=== PATIENT | male | born 1960 | race Caucasian/White ===

== ENCOUNTER 2016-07-25 20:35 | Emergency (ER) | payer MEDICARE ==
--- NOTE | ~2016-07-25 | CT4 ---
[facility] A Service of [facility] RADIOLOGY TEXT RESULTS PATIENT: ROSALINDA VERA JR LOCATION: [facility] : 62 UNIT #: [id number] AGE: [address]: Dayana Glass MD SEX: M ORDER DR: [id number] [address] [address] [id number] E MR#: [id number] Acc #: [id number] NAME: ROSALINDA VERA : 1960 SEX: M STUDY DATE/TIME: 07/26/2016 1:22 UNIT: [facility] ROOM: STUDY DESCRIPTION: CT Abd and Pelv Wo Cont Attending Physician: Dayana Glass M.D. Ordering Physician: Dayana Glass M.D. Primary Care Physician: Primary Care Physician No MEDICAL IMAGING REPORT This report is preliminary unless electronic signature is present EXAM CT abdomen and pelvis. INDICATION Urinary tract infection. Hallucinations. Dysuria. Generalized abdominal pain. TECHNIQUE CT of the abdomen and pelvis without contrast. Coronal and sagittal reconstructions were obtained. This CT exam was performed with one or more of the following radiation dose reduction techniques: automatic exposure control, adjustment of mA and/or kV according to patient size, and iterative reconstruction. COMPARISON None available. FINDINGS ABDOMEN: The solid abdominal organs are within normal limits. No urinary calculi. No hydronephrosis. There are a few small cysts in the right kidney. The gallbladder is surgically absent. The bowel is not dilated. The appendix is normal. There is a small umbilical hernia. PELVIS: No pelvic mass. There is a direct left inguinal hernia. No complicating features. The bladder is unremarkable. No enlarged pelvic or inguinal lymph nodes. No acute osseous abnormalities. IMPRESSION No acute findings in the abdomen or pelvis to account for the patient's [facility] A Service of [facility] RADIOLOGY TEXT RESULTS PATIENT: ROSALINDA VERA JR LOCATION: [facility] : 62 UNIT #: [id number] AGE: [address]: Dayana Glass MD SEX: M ORDER DR: symptoms. Dictated by... Frankie Winston M.D. THIS IS AN ELECTRONICALLY VERIFIED REPORT Frankie Winston M.D. at 07/26/2016 4:30 AM EDWIN/italia TD: 07/26/2016 02:29 JOB #: [id number] MEDICAL IMAGING REPORT Page 1 of 1 COPY
--- NOTE | ~2016-07-25 | EKG ---
PATIENT: ROSALINDA VERA UNIT #: [id number] Ventricular Rate: 114 BPM Atrial Rate: 114 BPM P-R Interval: 124 ms QRS Duration: 84 ms Q-T Interval: 336 ms QTC Calculation(Bezet): 463 ms P [place]: 48 degrees Calculated R [place]: 37 degrees Calculated T [place]: 57 degrees Diagnosis Line: Sinus tachycardia Diagnosis Line: Otherwise normal ECG Diagnosis Line: Diagnosis Line: Confirmed by SERA BUNDY MD ([id number]) on Diagnosis Line: 07/26/2016 1:36:21 PM INTERPRETING MD: NIHARIKA LINDSEY
--- NOTE | ~2016-07-25 | CT71 ---
[facility] A Service [facility] RADIOLOGY TEXT RESULTS PATIENT: ROSALINDA VERA JR LOCATION: [facility] : 62 UNIT #: [id number] AGE: [address]: Dayana Glass MD SEX: M ORDER DR: [id number] [address] [place], [place] [address] [id number] E MR#: [id number] Acc #: [id number] NAME: ROSALINDA VERA : 1960 SEX: M STUDY DATE/TIME: 07/26/2016 1:19 UNIT: [facility] ROOM: STUDY DESCRIPTION: CT Head Wo Contrast Attending Physician: Dayana Glass M.D. Ordering Physician: Dayana Glass M.D. Primary Care Physician: Primary Care Physician No MEDICAL IMAGING REPORT This report is preliminary unless electronic signature is present EXAM CT head INDICATION Urinary tract infection. Hallucinations. Dizziness and altered mental status. TECHNIQUE CT head without contrast. This CT exam was performed with one or more of the following radiation dose reduction techniques: automatic exposure control, adjustment of mA and/or kV according to patient size, and iterative reconstruction. COMPARISON CT head dated 12/08/2013. FINDINGS Axial noncontrast images were obtained from the skull base to the vertex. Ventricular size and configuration are normal. There is no evidence of acute infarct or hemorrhage. There are no extra-axial fluid collections. No mass lesion or mass effect is seen. There are no skull fractures. The patient has had prior left mastoidectomy. IMPRESSION Normal noncontrast head CT. Dictated by... Frankie Winston M.D. THIS IS AN ELECTRONICALLY VERIFIED REPORT [facility] A Service [facility] RADIOLOGY TEXT RESULTS PATIENT: ROSALINDA VERA JR LOCATION: [facility] : 62 UNIT #: [id number] AGE: [address]: Dayana Glass MD SEX: M ORDER DR: Frankie Winston M.D. at 07/26/2016 4:30 AM Martina TD: 07/26/2016 02:27 JOB #: [id number] MEDICAL IMAGING REPORT Page 1 of 1 COPY
[2016-07-26 01:39] LABS: URINE SOURCE CLEAN CATCH
[2016-07-26 01:44] LABS: BASOPHIL% 0.5 % (0-2.5); EOSINOPHIL# 0.2 X10e3 (0-0.7); EOSINOPHIL% 2.5 % (0.0-7.0); HEMOGLOBIN 14.6 gm/dL (13.0-16.0); LYMPHOCYTE# 3.1 X10e3 (1.0-3.5); LYMPHOCYTE% 34.1 % (17.0-45.0); MEAN CELL VOLUME 89.2 FL (83-96); MEAN CORPUSCULAR HEMOGLOBIN 30.4 PG (28-34); MEAN PLATELET VOLUME 8.8 FL (6.5-11.5); MONOCYTE# 0.9 X10e3 (0-1.0); MONOCYTE% 9.7 % (3.0-12.0); NEUTROPHIL# 4.8 X10e3 (1.5-7.1); NEUTROPHIL% 53.2 % (40-75); PLATELET COUNT 203 X10e3 (140-420); RED BLOOD COUNT 4.82 X10e (3.90-5.60); RED CELL DISTRIBUTION WIDTH 13.3 % (11.0-15.5); WHITE BLOOD COUNT 9.1 X10e3 (4.0-10.5)
[2016-07-26 01:46] LABS: DIFF IND NO
[2016-07-26 01:47] LABS: URINE APPEARANCE CLEAR; URINE BILIRUBIN NEG (NEG); URINE BLOOD 2+ (NEG); URINE COLOR YELLOW; URINE GLUCOSE NEG (NEG); URINE KETONE NEG (NEG); URINE LEUKOCYTE ESTERASE NEG (NEG); URINE NITRATE NEG (NEG); URINE PH 5.5 (5-8); URINE PROTEIN NEG (NEG); URINE SPECIFIC GRAVITY 1.027 (1.003-1.035)
[2016-07-26 01:50] LABS: URBCS1 AUWI 0-2 /[HPF] (0-2); URINE BACTERIA AUWI NEG (NEGATIVE); URINE SQUAMOUS EPITHELIAL CELL NONE SEEN /[HPF]; UWBCS1 AUWI 0-2 (0-5)
[2016-07-26 01:52] LABS: CULTURE INDICATED? NO
[2016-07-26 02:01] LABS: AMPHETAMINE POS (NEG); BARBITURATES NEG (NEG); BENZODIAZEPINES NEG (NEG); COCAINE POS (NEG); MARIJUANA NEG (NEG); OPIATES NEG (NEG); TRICYCLIC ANTIDEPRESSANTS NEG (NEG); U METHADONE NEG (NEG)
[2016-07-26 02:09] LABS: ALBUMIN SERUM 3.9 g/dL (3.5-5.0); ALKALINE PHOSPHATASE 65 U/L (32-92); ALT (SGPT) 57 U/L (10-40); AST (SGOT) 45 U/L (10-42); BILIRUBIN, DIRECT 0.2 mg/dL (0.0-0.2); BILIRUBIN,INDIRECT 0.7 mg/dL (0.0-0.9); BILIRUBIN,TOTAL 0.9 mg/dL (0.2-2.0); BLOOD UREA NITROGEN 20 mg/dL (9-23); BUN/CREATININE RATIO 15.38; CALCIUM SERUM 9.1 mg/dL (8.4-10.2); CARBON DIOXIDE 27 mmol/L (22-31); CHLORIDE 100 mmol/L (100-111); CREATININE SERUM 1.3 mg/dL (0.6-1.4); GLOM FILT RATE Estimated 61.4 mL/min (>60); GLUCOSE FASTING 97 mg/dL (70-110); LIPASE 28 U/L (22-51); POTASSIUM 3.6 mmol/L (3.5-5.1); PROTEIN TOTAL SERUM 6.5 g/dL (6.0-8.3); SODIUM 133 mmol/L (135-145)
[2016-07-26 02:26] LABS: ALCOHOL BLOOD <5 mg/dL (0)
== END 2016-07-26 05:15 | disposition home or self-care (01) ==
LOC: CED 20:35
PROVIDERS: Student in an Organized Health Care Education/Training Program
DX: R30.0 Dysuria (principal); F14.10 Cocaine abuse, uncomplicated; F15.10 Other stimulant abuse, uncomplicated; F32.9 Major depressive disorder, single episode, unspecified; Z79.899 Other long term (current) drug therapy; F17.200 Nicotine dependence, unspecified, uncomplicated
CPT/HCPCS: 36415; 70450; 74176; 80048; 80076; 80307; 81003; 83605; 83690; 85025; 87040; 93005; 96360; 99284; G0480; J1630

== ENCOUNTER 2016-09-17 13:26 | Emergency (ER) | payer MEDICARE ==
[~2016-09-17] VITALS: Ht 181.6 cm; Wt 107.0 kg
== END 2016-09-17 14:55 | disposition home or self-care (01) ==
LOC: CED 13:26 → CFTX 13:26
DX: L02.01 Cutaneous abscess of face (principal)
CPT/HCPCS: 99282